=== PATIENT | male | born 1980 | race Caucasian/White ===

== ENCOUNTER 2018-05-11 22:52 | Emergency (ER) | payer SELFPAY ==
[~2018-05-11] VITALS: Ht 198.1 cm; Wt 113.6 kg
[2018-05-12] MEDS ORDERED: GENTAMICIN SULFATE 0.3% OPHTHALMIC SOLUTION 5 ML OD ONE (01:15)
[2018-05-12] MEDS ORDERED: PROPARACAINE HCL 0.5% 15 ML OPHTHALMIC SOLUTION OU ONE (01:15)
[2018-05-12] MEDS ORDERED: FLUORESCEIN SODIUM 1 MG STRIP ONE (02:05)
[2018-05-12 02:24] VITALS: BP 133/85
== END 2018-05-12 02:28 | disposition home or self-care (01) ==
LOC: EMS 22:52
DX: S05.11XA Contusion of eyeball and orbital tissues, right eye, initial encounter (principal); H10.9 Unspecified conjunctivitis; X58.XXXA Exposure to other specified factors, initial encounter; Y93.89 Activity, other specified; Y92.89 Other specified places as the place of occurrence of the external cause; Y99.8 Other external cause status